=== PATIENT | male | born 1975 | race Caucasian/White ===

== ENCOUNTER 2016-11-02 12:25 | Emergency (ER) | payer OTHER ==
[2016-11-02] MEDS ORDERED: Lidocaine 1% with EPINEPHrine 1:100,000 50 ML MDV INFILT ONE (15:14)
--- NOTE | 2016-11-02 15:20 | EDM.PDOC ---
ED HPI GENERAL MEDICAL PROBLEM - General Chief Complaint: Gastrointestinal Problem Stated Complaint: HEMEROID Time Seen by Provider: 11/02/16 14:58 Source of Information: Reports: Patient History Limitations: Reports: No Limitations - History of Present Illness INITIAL COMMENTS - FREE TEXT/NARRATIVE: 41 yo male presents hemorrhoid. pain became severe yesterday. hx of hemorrhoid but all have resolved on there own. generally healthy Perineal Area Pain Score (Numeric/FACES): 3 - Related Data Allergies Allergy/AdvReac Type Severity Reaction Status Date / Time No Known Allergies Allergy Verified 11/02/16 14:53 Home Meds: Home Meds Escitalopram [Lexapro] 1 tab PO DAILY 11/02/16 [History] Past Medical History - Past Surgical History GI Surgical History: Reports: Appendectomy, Hernia, Inguinal Social & Family History - Tobacco Use Smoking Status *Q: Never Smoker - Caffeine Use Caffeine Use: Reports: Coffee - Recreational Drug Use Recreational Drug Use: No ED ROS GENERAL - Review of Systems Review Of Systems: See Below Constitutional: Denies: Fever, Chills Respiratory: Denies: Shortness of Breath, Wheezing Cardiovascular: Denies: Chest Pain ED EXAM, GI/ABD - Physical Exam Exam: See Below Exam Limited By: No Limitations General Appearance: Alert, WD/WN, No Apparent Distress Respiratory/Chest: No Respiratory Distress, Lungs Clear Cardiovascular: Regular Rate, Rhythm GI/Abdominal: Soft, Non-Tender Rectal (Males) Exam: Hemorrhoids (thrombosed external 9:00-12:00) ED ABDOMINAL/GI PROCEDURES - Additional/Other Procedure(s) Procedure(s) (Free Text): Area cleaned with alcohol. Hemorrhoid infiltrated with 3 cc 1% lidiocaine. lateral wall of hemorrhoid opened with 10 blade, clot was expressed with manual pressure and cavity rinsed with normal saline. pt tolerated procedure well Course - Vital Signs Last Recorded V/S: Last Vital Signs Temp 35.8 C 11/02/16 14:59 Pulse 78 11/02/16 14:59 Resp 14 11/02/16 14:59 BP 131/93 H 11/02/16 14:59 Pulse Ox 98 11/02/16 14:59 - Orders/Labs/Meds Meds: Medications Discontinued Medications Generic Name Dose Route Start Last Admin Trade Name Freq PRN Reason Stop Dose Admin Lidocaine/Epinephrine 5 ml 11/02/16 15:14 11/02/16 15:29 Xylocaine 1% With Epinephrine 1:100,000 INFILT 11/02/16 15:15 5 ml ONETIME ONE Administration Departure - Departure Time of Disposition: 15:47 Disposition: Home, Self-Care 01 Condition: Good Clinical Impression: Acute hemorrhoid - Discharge Information Instructions: Hemorrhoids, [id number] Referrals: PCP,None [Primary Care Provider] - Forms: ED Department Discharge Additional Instructions: lidocaine Jelly 2% to area for pain control soften stools with miralax stay out of [place] until area is healed
== END 2016-11-02 16:13 | disposition home or self-care (01) ==
LOC: JP.ED 12:25 → MERGE 12:25 → JP.ED 16:13
DX: K64.9 Unspecified hemorrhoids (principal); Z90.49 Acquired absence of other specified parts of digestive tract; Z98.890 Other specified postprocedural states; Z79.899 Other long term (current) drug therapy
CPT/HCPCS: 46083; 99283-25